=== PATIENT | female | born 1990 | race Caucasian/White ===

== ENCOUNTER → 2020-08-02 | Outpatient (CLI) | payer BC | END | disposition home or self-care (01) | LOC: LABWHC1 11:39 | PROVIDERS: ATTEND Family Medicine | DX: R50.9 Fever, unspecified (principal); J02.9 Acute pharyngitis, unspecified; R53.83 Other fatigue; M79.10 Myalgia, unspecified site | CPT/HCPCS: U0003; C9803 ==

== ENCOUNTER → 2023-02-16 | Outpatient (CLI) | payer BC ==
--- NOTE | 2023-02-16 14:39 | XR ---
EXAMINATION TYPE: XR chest 2V DATE OF EXAM: 02/16/2023 COMPARISON: NONE HISTORY: Generalized hyperhidrosis 6 years. TECHNIQUE: Frontal and lateral views of the chest are obtained. FINDINGS: The heart size is normal. The cardiomediastinal silhouette and pulmonary vasculature are within tiana l limits. There is no focal consolidation, significant pleural effusion, or pneumothorax. IMPRESSION: No acute cardiopulmonary process.
== END | disposition home or self-care (01) ==
LOC: RADXRMAIN 12:56
PROVIDERS: ATTEND Family Medicine
DX: R61 Generalized hyperhidrosis (principal)
CPT/HCPCS: 71046